=== PATIENT | male | born 1950 | race Caucasian/White ===

== ENCOUNTER 2023-10-17 13:47 | Outpatient (REF) | payer MEDICARE, SELFPAY ==
[2023-10-17 14:50] VITALS: BP 149/82; PULSE 98; RESP 17; TEMP 36.1; O2SAT 98
[2023-10-17 18:30] VITALS: BMI 31.9
== END 2023-10-17 13:48 | disposition home or self-care (01) ==
LOC: HO.MS 13:47
PROVIDERS: PCP Internal Medicine; Visit Provider Ophthalmology
PROC: (CPT 66250; principal; 2023-10-17 15:10)
DX: H40.1123 Primary open-angle glaucoma, left eye, severe stage (principal)
CPT/HCPCS: 66250; 68200; J9190

== ENCOUNTER → 2024-10-03 11:18 | Outpatient (BNV) | payer MEDICARE, SELFPAY | PROVIDERS: PCP Internal Medicine; Referring Provider Internal Medicine; Visit Provider Internal Medicine | DX: D64.9 Anemia, unspecified (principal) | CPT/HCPCS: 99204; G2211 ==

== ENCOUNTER 2025-01-03 08:15 | Outpatient (REF) | payer MEDICARE, SELFPAY ==
--- NOTE | ~2025-01-03 | CT_ITS ---
EXAMINATION: CT CHEST WITHOUT CONTRAST CLINICAL INFORMATION: History of colon CA COMPARISON: None available. TECHNIQUE: Multidetector volumetric CT imaging of the chest was done. Axial MIP volume rendering provided. Sagittal and coronal reformatted images were obtained. This CT examination was performed using dose optimization techniques as appropriate, variously including the following: *Automated exposure control *Adjustment of mA and/or kV according to patient size (this includes techniques or standardized protocols for targeted exams where dose is matched to indication/reason for exam; i.e. extremities or head) *Use of iterative reconstruction technique FINDINGS: LUNGS: There are scattered tiny calcified granulomata, benign. There is a 3 mm right upper lobe nodule peripherally (series 4, image 30). There are 2 directly abutting 3 mm nodules in the posterior right upper lobe (series 4, image 46). There is a 3 mm nodule in the superior segment left lower lobe (series 4, image 77). There is a 3 mm subpleural nodule in the left lower lobe laterally (series 4, image 99). There is a 6 mm nodule in the left lower lobe laterally (series 4, image 107). Lungs are clear without abnormal consolidation or opacity. No effusion or pneumothorax. Small airways appear normal. Central airways are patent. MEDIASTINUM: Normal thyroid. No lymphadenopathy or mass. Aorta is mild to moderately calcified without aneurysm. Normal great vessel branching pattern. Normal main pulmonary artery. Heart size is normal. No pericardial effusion. Esophagus is normal. CORONARY ARTERY CALCIFICATION: Moderate to heavy coronary calcifications. PLEURA: There is no pleural effusion. No pleural mass or thickening. AXILLA: No lymphadenopathy or mass. IMAGED UPPER ABDOMEN: Unremarkable. OSSEOUS STRUCTURES: No suspicious lytic or blastic bone lesions. There are mild spinal degenerative changes. CT/CT chest wo IV con IMPRESSION: 1. There are a few scattered pulmonary nodules, largest measuring 6 mm in the left lower lobe laterally. Follow-up as per oncology. 2. Lungs otherwise clear. There is no active pulmonary disease. 3. There is no mediastinal mass or lymphadenopathy. 4. There are moderate to heavy coronary calcifications. 5. Additional ancillary findings as discussed in the body of the report. Electronically signed by: Umer Alvarez MD 01/03/2025 09:43 AM EDT
--- NOTE | ~2025-01-03 | CT_ITS ---
EXAMINATION: CT ABDOMEN AND PELVIS WITH CONTRAST CLINICAL INFORMATION: Anemia, history of colon cancer. COMPARISON: None available. TECHNIQUE: Multidetector volumetric images were obtained from the superior aspect of the liver through the pubic symphysis following administration 85 mL of Omnipaque 350 intravenous contrast. Sagittal and coronal reformatted images were obtained on the technologist's workstation. Oral contrast: Yes This CT examination was performed using dose optimization techniques as appropriate, variously including the following: *Automated exposure control *Adjustment of mA and/or kV according to patient size (this includes techniques or standardized protocols for targeted exams where dose is matched to indication/reason for exam; i.e. extremities or head) *Use of iterative reconstruction technique FINDINGS: LUNG BASES: Refer to the dedicated chest CT performed concurrently. LIVER, GALLBLADDER, AND BILIARY TREE: The liver is normal in size, shape, and attenuation. Focal fatty infiltration abutting the falciform ligament. No suspicious focal hepatic lesion or biliary ductal dilatation is present. The gallbladder is unremarkable with no evidence of radiopaque gallstones, gallbladder wall thickening, or obvious pericholecystic inflammatory changes. PANCREAS: Unremarkable. SPLEEN: Unremarkable. ADRENAL GLANDS: Unremarkable. KIDNEYS AND URETERS: The kidneys are normal in size, shape, and attenuation. There are extrarenal pelves. No hydronephrosis, hydroureter, or calculi seen. No perinephric stranding. BLADDER: Suboptimally distended. Mildly diffusely thick-walled, likely on the basis of outlet obstruction. The median lobe of the prostate protrudes into the bladder base. GASTROINTESTINAL TRACT: There has been a prior rectosigmoid anastomosis. The anastomotic site is unremarkable in appearance. Mild nonspecific fat stranding is present surrounding the cecum and ascending colon. No wall thickening. The appendix appears surgically absent. Remainder of the colon is normal in course and caliber. No mass is appreciated. Small bowel is normal in course, caliber, and appearance. Stomach, and duodenum appear normal. ABDOMINAL WALL: There has been prior ventral hernia repair, likely secondary to a stomal hernia, with mesh. There are tiny bilateral fat-containing inguinal hernias. LYMPH NODES: There is no pathologic lymphadenopathy present. VASCULAR: Moderate to heavy atheromatous calcification of the aorta and its branches. No aneurysm. PELVIC VISCERA: There is significant prostate enlargement, with the prostate measuring diameter of 5.8 cm. Median lobe protrudes significantly into the bladder base. OSSEOUS STRUCTURES: There is no suspicious lytic or blastic bone lesion. There are degenerative changes throughout the spine, most notable L4-S1. There are mild to moderate degenerative changes of both hip joints. There are degenerative changes in both SI joints. CT/CT abdomen pelvis w IV con IMPRESSION: 1. There is no evidence of recurrence of neoplastic disease or abnormal lymphadenopathy in the abdomen and pelvis. 2. Mild nonspecific fat stranding surrounding the cecum and ascending colon without wall thickening. This is of uncertain significance or clinical relevance. A mild segmental colitis or sequela of prior colitis is possible. 3. There has been a rectosigmoid anastomosis. The anastomotic site appears unremarkable. 4. There is prostatomegaly. Mild urinary bladder wall thickening is likely secondary to chronic outlet obstruction. 5. Additional ancillary findings as discussed in the body of the report. Electronically signed by: Umer Alvarez MD 01/03/2025 10:48 AM EDT
[2025-01-03] MEDS: iohexoL 350 MG/ML 100 ML INFUS..BTL IV (09:24)
[2025-01-03 12:53] LABS: Creatinine POC 0.8 mg/dL (0.5-1.4); GFR POC > 60
== END 2025-01-03 08:16 | disposition home or self-care (01) ==
LOC: HO.CT 08:15
PROVIDERS: PCP Nurse Practitioner Family; Visit Provider Internal Medicine
DX: C18.9 Malignant neoplasm of colon, unspecified (principal); D64.9 Anemia, unspecified
CPT/HCPCS: 71250; 74177; 82565; Q9967

== ENCOUNTER → 2025-01-03 08:18 | Outpatient (BNV) | payer MEDICARE, SELFPAY | PROVIDERS: PCP Nurse Practitioner Family; Visit Provider Radiology Diagnostic Radiology | DX: N40.0 Benign prostatic hyperplasia without lower urinary tract symptoms (principal); R91.1 Solitary pulmonary nodule | CPT/HCPCS: 71250; 74177 ==